=== PATIENT | male | born 1970 | race Hispanic/Latino ===

== ENCOUNTER 2017-05-08 15:10 | Emergency (ER) | payer BC, OTHER ==
[2017-05-08] MEDS ORDERED: Acetaminophen 500 MG TAB ONE (15:29)
--- NOTE | 2017-05-08 15:39 | RAD ---
CHEST AP AND LATERAL 2 VIEWS: Date: 05/08/17 HISTORY: 46-year-old male with history of cough and flu-like symptoms. FINDINGS: Heart size is within normal limits. The lungs are clear. No pneumonia, edema, or pleural effusion. IMPRESSION: No acute intrathoracic disease. No evidence for pneumonia. POS: [facility]
== END 2017-05-08 15:48 | disposition home or self-care (01) ==
LOC: SCSER 15:10
DX: J11.1 Influenza due to unidentified influenza virus with other respiratory manifestations (principal); J45.909 Unspecified asthma, uncomplicated
CPT/HCPCS: 71046

== ENCOUNTER 2017-05-17 19:17 | Emergency (ER) | payer OTHER ==
[2017-05-17] MEDS ORDERED: Ibuprofen 200 MG TAB ONE (19:52)
[2017-05-17] MEDS ORDERED: Acetaminophen 500 MG TAB ONE (19:52)
--- NOTE | 2017-05-17 20:21 | RAD ---
TWO VIEWS CHEST 05/17/17 PROVIDED CLINICAL HISTORY: Cough. FINDINGS: Comparison is made with the study dated 05/08/17. The cardiac and mediastinal silhouette is within normal limits. No focal consolidation, pleural fluid or pneumothorax apparent. IMPRESSION: No evidence for an acute cardiopulmonary process. POS: [facility]
== END 2017-05-17 20:29 | disposition home or self-care (01) ==
LOC: SCSER 19:17
DX: J11.1 Influenza due to unidentified influenza virus with other respiratory manifestations (principal); J45.909 Unspecified asthma, uncomplicated
CPT/HCPCS: 71046